=== PATIENT | male | born 1935 | race Caucasian/White ===

== ENCOUNTER 2018-06-20 06:40 | Day surgery (SDC) | payer OTHER, MEDICAID ==
[~2018-06-20] VITALS: Ht 160 cm; Wt 64.0 kg
[2018-06-20 07:27] VITALS: BP 141/73
[2018-06-20 09:29] VITALS: BP 125/64
== END 2018-06-20 10:10 | disposition home or self-care (01) ==
LOC: GI 06:40
PROVIDERS: Internal Medicine Gastroenterology
PROC: 0DJD8ZZ Inspection of Lower Intestinal Tract, Via Natural or Artificial Opening Endoscopic (ICD-10-PCS; principal; 2018-06-20 07:30)
DX: K57.30 Diverticulosis of large intestine without perforation or abscess without bleeding (principal); K64.8 Other hemorrhoids
CPT/HCPCS: 45378; J1200; J1610; J2250; J2310; J3010; J3490